=== PATIENT | male | born 1975 | race Caucasian/White ===

== ENCOUNTER 2021-03-23 08:21 | Outpatient (REF) | payer MEDICAID, SELFPAY ==
[2021-03-23 21:09] LABS: ALT 29 U/L (16-63); AST 12 U/L (15-37); Albumin 4.1 g/dL (3.4-5.0); Alkaline Phosphatase 71 U/L (46-116); Anion Gap 11.1 mmol/L (3-11); BUN 10 mg/dL (7-18); Bilirubin, Total 0.7 mg/dL (0.2-1.0); CO2 27.9 mmol/L (21.0-32.0); CREATININE 0.9 mg/dL (0.70-1.30); Calcium 8.6 mg/dL (8.5-10.1); Calculated LDL 45 mg/dL (<100); Chloride 101 mmol/L (98-107); Cholesterol 93 mg/dL (<200); Glucose 127 mg/dL (74-106); HDL Cholesterol 32 mg/dL (40-60); Potassium 3.8 mmol/L (3.5-5.1); Sodium 140 mmol/L (136-145); Total Protein 7.2 g/dL (6.4-8.2); Triglyceride 81 mg/dL (<150)
== END 2021-03-23 08:22 | disposition home or self-care (01) ==
LOC: NCHCN 08:21
PROVIDERS: Visit Provider Nurse Practitioner Family
DX: I10 Essential (primary) hypertension (principal)
CPT/HCPCS: 80053; 80061

== ENCOUNTER 2021-08-10 14:41 | Outpatient (REF) | payer MEDICAID, SELFPAY ==
[2021-08-10 20:23] LABS: ALT 17 U/L (16-63); AST 13 U/L (15-37); Albumin 4.1 g/dL (3.4-5.0); Alkaline Phosphatase 74 U/L (46-116); BUN 34 mg/dL (7-18); Bilirubin, Total 0.7 mg/dL (0.2-1.0); CREATININE 1.3 mg/dL (0.70-1.30); Calcium 9.3 mg/dL (8.5-10.1); Estimated GFR 59.17 (mL/min/1.73m2); Glucose 170 mg/dL (74-106); Total Protein 7.7 g/dL (6.4-8.2)
[2021-08-10 20:32] LABS: Anion Gap 11.3 mmol/L (3-11); CO2 29.7 mmol/L (21.0-32.0); Chloride 96 mmol/L (98-107); Potassium 3.9 mmol/L (3.5-5.1); Sodium 137 mmol/L (136-145)
== END 2021-08-10 14:42 | disposition home or self-care (01) ==
LOC: NCHCN 14:41
PROVIDERS: Visit Provider Nurse Practitioner Family
DX: I10 Essential (primary) hypertension (principal); E78.5 Hyperlipidemia, unspecified
CPT/HCPCS: 80053